=== PATIENT | male | born 1985 | race Caucasian/White ===

== ENCOUNTER 2018-11-19 15:31 | Emergency (ER) | payer OTHER ==
[2018-11-19] MEDS ORDERED: Acetaminophen/Codeine 30-300mg Tablet ONE (15:59)
--- NOTE | 2018-11-19 16:52 | RAD ---
Exam: Chest one view HISTORY:Dyspnea. Chest pain. Comparison: None FINDINGS: Cardiac silhouette: Normal Pulmonary vessels: Normal Costophrenic angles: Clear LUNGS: No masses or consolidation. Pneumothorax: None Osseous abnormalities: None IMPRESSION: No acute cardiopulmonary process.
--- NOTE | 2018-11-19 16:55 | CT ---
Exam: Abdomen CT without contrast Pelvic CT without contrast Limited CT of the lumbar spine HISTORY: Chest pain. Patient fell from wheelchair, in the left flank. FINDINGS: Abdomen CT: Lung bases demonstrate dependent atelectatic changes. Limited evaluation of the solid organs due to the lack of IV contrast. Heterogeneous attenuation of t he liver likely representing areas of fatty infiltration and fat is sparing. The spleen and pancreas and adrenal glands have appropriate attenuation. There is no evidence of posttraumatic perih epatic or perisplenic fluid. No gastrohepatic, retrocrural or periportal lymphadenopathy Scattered nonspecific, nonenlarged mesenteric lymph nodes. No mesenteric mass, free air or fluid Bilaterally no obstructive uropathy. Evaluation of the alimentary canal by the lack of oral contrast. No evidence of bowel obstruction. Il eocecal junction is normal. Normal caliber appendix. Scattered fecal material in a nondistended, nondilated colon. Pelvis CT: Unremarkable urinary bladder. No pelvic mass, lymphadenopathy, free air or free fluid. Visualized ribs are intact. Visualized bony pelvis is also intact. No evidence of fracture. Sacral al ar are preserved. CT lumbar spine: Lumbar spine vertebral body height is maintained. There is no vertebral body fractur e or malalignment. Minimally displaced fracture involving the left transverse process at L1. There is posterior laminectomy the defect at L2, L3, L4 and L5. Note is made of a tract from a previous gamma nail in the right hip. IMPRESSION: 1. Minimally displaced fracture of the left L1 transverse process. 2. No posttraumatic change in the abdomen or pelvis. Transcribed Date/Time: 11/19/2018 5:27 PM
== END 2018-11-19 17:16 | disposition home or self-care (01) ==
LOC: NAV ERS 15:31
DX: S32.019A Unspecified fracture of first lumbar vertebra, initial encounter for closed fracture (principal); W18.30XA Fall on same level, unspecified, initial encounter
CPT/HCPCS: 71045; 74176